=== PATIENT | female | born 1985 | race Caucasian/White ===

== ENCOUNTER 2018-12-30 09:16 | Day surgery (SDC) | payer OTHER ==
[2018-12-20 11:45] VITALS: BMI 22.0
[2018-12-30] MEDS ORDERED: MIDAZOLAM HCL 2 MG/2 ML SINGLE DOSE VIAL ONE ×2 (10:29)
[2018-12-30] MEDS ORDERED: SUCCINYLCHOLINE CHLORIDE 200 MG/10 ML SYRINGE ONE (10:30)
[2018-12-30] MEDS ORDERED: PROPOFOL 20 ML ONE ×2 (10:30)
[2018-12-30] MEDS ORDERED: LIDOCAINE 1%-EPI 1:100,000 30 ML MDV IJ ONE (10:30)
[2018-12-30] MEDS ORDERED: LIDOCAINE 1%/EPI 1:100000 (50 ML MULTI DOSE VIAL) INF ONE (10:54)
[2018-12-30] MEDS ORDERED: FERRIC SUBSULFATE 500 ML BOTTLE TP ONE (10:56)
[2018-12-30] MEDS ORDERED: IODINE/POTASSIUM IODIDE 5%/10% 14 ML BOTTLE NR ONE (10:56)
[2018-12-30] MEDS ORDERED: ONDANSETRON 4 MG/2 ML VIAL IVPUSH PRN (11:06)
[2018-12-30] MEDS ORDERED: KETOROLAC TROMETHAMINE 30 MG/1 ML VIAL IVPB PRN (11:06)
--- NOTE | 2018-12-30 11:12 | OP ---
Operative Note - Note: Operative Date: 12/30/18 Pre-Operative Diagnosis: HGSIL of cervix Operation: Colposcopy. LEEP of cervix Post-Operative Diagnosis: Same as Pre-op Surgeon: Griffin Parada Anesthesia: General Specimens Removed: ant. and post. sweeps. "High hat" Estimated Blood Loss (mls): 0 Operative Report Dictated: Yes
[2018-12-30] MEDS ORDERED: LACTATED RINGERS SOLUTION 1,000 ML IV SCH (11:30)
--- NOTE | 2018-12-30 12:15 | OP ---
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 PROCEDURE: Colposcopy, loop electro excision procedure of the cervix. SURGEON: Shannon Parada MD ANESTHESIA: General LMA. PROCEDURE AND FINDINGS: Under light general anesthesia in dorsal lithotomy position, vulva and vagina were thoroughly washed with solution of acetic acid. Same solution was applied to the cervix. Speculum was introduced, and colposcopy was carried out. No obvious lesions were visualized colposcopically. Cervix was nulliparous, well formed. Lugol solution was applied. A few isolated Lugol-negative areas were seen near the external os and the transformation zone. Transformation zone was not clearly visualized. Using Xylocaine 1% with epinephrine, 4-quadrant injections were carried out. About a total of 7 mL was used. Loop 10 x 10 was then used and activated. Using current at 40 joshi, anterior sweep and posterior sweep were then obtained removing all of the abnormal area and without affecting the integrity of the cervix. Additional "high hat" specimen was then obtained that would incorporate part of the endocervical canal. All 3 were sent for the pathology. Rounded crater was left after the excision. Using 5-mm bowl and 40-watt coagulation current, the base of the crater was thoroughly coagulated. There was no bleeding before, and there was no bleeding after the coagulation. Monsel paste was then applied inside of the crater and around the cervix. Procedure was completed with no blood loss. Patient withstood operation very well. She was awakened and transferred to the PACU stable and comfortable. SHANNON PARADA MD JR/[id number]
[2018-12-30 13:26] VITALS: TEMP 97.8
[2018-12-30] MEDS ORDERED: ACETAMINOPHEN 325 MG TABLET (FP) ONE (13:29)
[2018-12-30] MEDS: ACETAMINOPHEN 325 MG TABLET (FP) PO PRN (13:30)
[2018-12-30 14:14] VITALS: BP 119/73; PULSE 67
--- NOTE | 2018-12-31 17:57 | PATH ---
Surgical Pathology Report Patient Name: SELENE CAMACHO [facility]. Rec. #: [id number] /Age/Gender: 1985 (Age: 33) / F Account: [id number] Location: [facility] SURGICAL Taken: 12/30/2018 Received: 12/30/2018 Reported: 12/31/2018 Physicians: Griffin Parada MD Specimen(s) Received A: ANTERIOR SWEEP CERVICAL CONE BIOPSY B: POSTERIOR SWEEP CERVICAL CONE BIOPSY C: HIGH HAT CERVICAL CONE BIOPSY Clinical History High grade squamous epithelial lesion of the cervix Final Diagnosis A. ANTERIOR SWEEP- CERVICAL CONE BIOPSY: ENDO AND ECTO CERVICAL TISSUE WITH FOCAL DOREEN 1 (CERVICAL INTRAEPITHELIAL NEOPLASIA GRADE 1). SQUAMOUS METAPLASIA PRESENT. NO HISTOLOGIC EVIDENCE OF HIGH GRADE DYSPLASIA. B. POSTERIOR SWEEP- CERVICAL CONE BIOPSY: ENDO /ECTOCERVICAL TRANSFORMATION ZONE WITH DOREEN 1 (CERVICAL INTRAEPITHELIAL NEOPLASIA GRADE 1). NO HISTOLOGIC EVIDENCE OF HIGH GRADE DYSPLASIA. C. HIGH HAT, CERVICAL CONE BIOPSY: ENDOCERVICAL TISSUE WITH NO SIGNIFICANT PATHOLOGIC CHANGE. Electronically Signed Aislinn Cedillo M.D. Gross Description A. Received in formalin, labeled "anterior sweep-cervical cone biopsy" is a norton, mucosal tissue measuring 1.5 x 1 x 0.3 cm. The specimen is not oriented. The mucosal surface is smooth. The resection margin is inked green. The specimen is serially sectioned and entirely submitted in one cassette. B. Received in formalin, labeled "posterior sweep-cervical cone biopsy" is a norton, mucosal tissue measuring 1.4 x 0.9 x 0.4 cm. The specimen is not oriented. The mucosal surface is smooth. The resection margin is inked green. The specimen is serially sectioned and entirely submitted in one cassette. C. Received in formalin, labeled "high hat- cervical cone biopsy" is a norton, mucosal tissue measuring 1.1 x 0.9 x 0.2 cm. The specimen is not oriented. The mucosal surface is unremarkable. The resection margin is inked green. The specimen is serially sectioned and entirely submitted in one cassette. __ KWS/12/31/2018 sulki/12/31/2018
== END 2018-12-30 14:10 | disposition home or self-care (01) ==
LOC: JASU-SURG 09:16
PROVIDERS: ATTEND Specialist
PROC: 0UBC7ZX Excision of Cervix, Via Natural or Artificial Opening, Diagnostic (ICD-10-PCS; principal; 2018-12-30 10:49)
DX: N87.0 Mild cervical dysplasia (principal)
CPT/HCPCS: 84703; 88307-TC; 94760

== ENCOUNTER 2021-11-02 04:23 | Day surgery (SDC) | payer OTHER ==
[2021-11-01 13:31] VITALS: BMI 20.7
[2021-11-02 11:33] VITALS: BP 101/65; PULSE 79; TEMP 98.8
== END 2021-11-02 14:10 | disposition home or self-care (01) ==
LOC: JASU-SURG 04:23
PROVIDERS: ATTEND Specialist
DX: Z53.8 Procedure and treatment not carried out for other reasons (principal)
CPT/HCPCS: C9803-CS; U0003; U0005

== ENCOUNTER 2021-11-14 04:36 | Day surgery (SDC) | payer OTHER ==
[2021-11-11 14:01] VITALS: BMI 20.7
[2021-11-14 06:29] VITALS: RESP 18
[2021-11-14] MEDS ORDERED: MIDAZOLAM HCL 2 MG/2 ML SINGLE DOSE VIAL ONE ×2 (08:30→08:38)
[2021-11-14] MEDS ORDERED: PROPOFOL 20 ML ONE ×3 (08:30)
[2021-11-14] MEDS ORDERED: ceFAZolin SODIUM 1 GM VIAL IVPB ONE (08:45)
[2021-11-14] MEDS ORDERED: PROMETHAZINE HCL 25 MG/1 ML VIAL IVPUSH PRN (09:04)
[2021-11-14] MEDS ORDERED: ONDANSETRON 4 MG/2 ML VIAL IVPUSH PRN (09:04)
[2021-11-14] MEDS ORDERED: oxyCODONE HCL 5 MG TABLET PO PRN (09:04)
[2021-11-14] MEDS ORDERED: IBUPROFEN 400 MG TABLET (FP) PO PRN (09:10)
[2021-11-14] MEDS ORDERED: ACETAMINOPHEN 325 MG TABLET (FP) PO PRN (09:10)
[2021-11-14] MEDS ORDERED: ONDANSETRON 4 MG/2 ML VIAL ONE (10:35)
[2021-11-14] MEDS ORDERED: ONDANSETRON 4 MG/2 ML VIAL IVPB ONE (10:40)
[2021-11-14 12:14] VITALS: BP 126/62; PULSE 70; TEMP 98.8
== END 2021-11-14 11:35 | disposition home or self-care (01) ==
LOC: JASU-SURG 04:36
PROVIDERS: ATTEND Specialist
PROC: 10A07ZZ Abortion of Products of Conception, Via Natural or Artificial Opening (ICD-10-PCS; principal; 2021-11-14 08:46)
DX: Z33.2 Encounter for elective termination of pregnancy (principal)
CPT/HCPCS: 88305-TC; 94760